=== PATIENT | male | born 1975 | race Caucasian/White ===

== ENCOUNTER 2022-01-07 17:14 | Emergency (ER) | payer OTHER, SELFPAY ==
[2022-01-07 17:25] VITALS: BP 123/64; PULSE 99; RESP 18; TEMP 38.9; O2SAT 98
--- NOTE | 2022-01-07 18:05 | ED.URI ---
HPI - URI/Sore Throat General Chief Complaint: Fever Stated Complaint: Hot Flashes, Chills Time Seen by Provider: 01/07/22 18:06 History of Present Illness HPI Narrative: Liang Nayak is a 46 yo male withno PMH who comes to express care with fever, chills, and body aches x 2 days has not had COVID vaccines and is worried that he is not swelling still has 102 temperature and has not taken anything thing for fever since 530 this morning Related Data Home Medications Medication Instructions Recorded Confirmed No Home Medications 01/07/22 01/07/22 Allergies Allergy/AdvReac Type Severity Reaction Status Date / Time aspirin Allergy Unknown Unknown Verified 01/07/22 17:27 codeine Allergy Unknown Unknown Verified 01/07/22 17:27 Sulfa (Sulfonamide Allergy Unknown Other Verified 01/07/22 17:27 Antibiotics) Review of Systems Review of Systems: CONSTITUTIONAL: Has fever, chills, sweats. Complaining of body aches, feels poorly EYES: Denies visual changes, redness, discharge. ENT: Denies rhinorrhea, congestion, sore throat, otalgia. CARDIOVASCULAR: Denies chest pain, palpitations, edema. RESPIRATORY: Denies dyspnea, wheezing, cough GASTROINTESTINAL: Denies abdominal pain, nausea, vomiting, diarrhea. GENITOURINARY: Denies dysuria, hematuria, abnormal discharge SKIN: Denies rash or itching. NEUROLOGIC: Denies numbness, or focal weakness. PSYCHIATRIC: Denies anxiety or depression. [facility] Social History Social History (Updated 01/07/22 @ 18:16 by Marj Faustin CNP) Smoking status: Never smoker Alcohol intake: never Comments At time of signature, I agree with nursing past medical, surgical, social and family history. There is no relevant family history pertinent to the presenting complaint. Exam Narrative: GENERAL: This is a well-nourished, well-developed patient, in moderate distress. HEAD: normocephalic, atraumatic. EYES: Sclera clear/white. Vision is grossly intact. EARS: External ears normal, auditory canals clear and without drainage, TMs normal without perforation. Hearing grossly intact. NOSE: External nose normal has nasal discharge, nares without redness, has rhinorrhea. THROAT: Mucous membranes moist, NECK: Neck supple, non-tender CARDIOVASCULAR: Tachycardic rate and rhythm without murmurs, gallops, or rubs. RESPIRATORY: Clear to auscultation. Breath sounds equal bilaterally. No wheezes, rales, or rhonchi. GASTROINTESTINAL: Not done SKIN: warm, intact with no suspicious lesions or rash, good texture and turgor. NEURO: awake, alert, and oriented to person, place and time. There were no obvious focal neurologic abnormalities. Steady gait EXTREMITIES: Normal range of motion. BACK: Nontender without deformity Course Course Emergency Course: Patient here for fever and body aches has not taken Tylenol since this morning but is drinking water Flu test done- negative COVID done- positive Tylenol ibuprofen [id number] push fluids and rest he must isolate for full 10 days since he has not had the vaccine as well as his needs to vaccine fax to isolate as both are nonvaccinated Level of Care: Express Care Visit Vital Signs Vital signs: Vital Signs Temperature 102.1 F H 01/07/22 17:25 Pulse Rate 99 01/07/22 17:25 Respiratory Rate 18 01/07/22 17:25 Blood Pressure 123/64 01/07/22 17:25 Pulse Oximetry 98 01/07/22 17:25 Oxygen Delivery Room Air 01/07/22 17:25 Temperature 102.1 F H 01/07/22 17:25 Pulse Rate 99 01/07/22 17:25 Respiratory Rate 18 01/07/22 17:25 Blood Pressure 123/64 01/07/22 17:25 Pulse Oximetry 98 01/07/22 17:25 Oxygen Delivery Room Air 01/07/22 17:25 MDM - URI/Sore Throat Differential Diagnosis Differential diagnosis: Likely upper respiratory infection, sinusitis, viral infection, influenza and other (COVID) Lab Data Labs: Lab Results 01/07/22 Range/Units 18:05 POC SARS CoV-2 Ag Positive (Negative) Inf
== END 2022-01-07 18:40 | disposition home or self-care (01) ==
PROVIDERS: Emergency Provider Nurse Practitioner; PCP Physician Assistant
DX: U07.1 COVID-19 (principal)
CPT/HCPCS: 87426; 87804; 99213; C9803; G0463